=== PATIENT | female | born 1950 | race Caucasian/White ===

== ENCOUNTER → 2016-11-22 | Outpatient (CLI) | payer BC ==
--- NOTE | 2016-11-26 14:59 | US ---
EXAM DESCRIPTION: Diagnostic Mammo,Bilateral (accession [id number]), Breast,Left (accession [id number]) CLINICAL HISTORY: 66 years, Female, Screening mammogram COMPARISON: September 08, 2015 TECHNIQUE: CC and MLO digital mammograms with computer aided detection. Limited left breast ultrasound within the retroareolar soft tissues at the 12:00 position. FINDINGS: There are scattered fibroglandular densities. There is no dominant mass nor any suspicious microcalcifications. Benign microcalcifications are present. Limited left breast ultrasound was unremarkable. IMPRESSION: BI-RADS 2: BENIGN FOLLOW-UP: Routine mammography screening. According to the [employer], yearly mammograms are recommended starting at age 40 and continuing as long as a woman is in good health. Any breast change noted on a breast self-exam should be reported promptly to the patient's healthcare provider. Breast MRI is recommended for women with an approximately 20-25% or greater lifetime risk of breast cancer, including women with a strong family history of breast or ovarian cancer and women who have been treated for Hodgkin's disease. A negative Mammography report should not discourage follow up or biopsy of a clinically significant finding and/or abnormality. Dense breast tissue may obscure neoplasms. Electronically signed by: Leif Anaya MD 11/26/2016 2:58 PM CDT
== END | disposition home or self-care (01) ==
LOC: MAMMO 14:10
PROVIDERS: ATTEND Family Medicine
DX: N63 Unspecified lump in breast (principal)